=== PATIENT | male | born 2000 | race Caucasian/White ===

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

== ENCOUNTER 2020-07-25 00:35 | Emergency (ER) | payer BC ==
[~2020-07-25] VITALS: Ht 177.8 cm; Wt 93.6 kg
[2020-07-25 00:52] VITALS: TEMP 97.9
[2020-07-25 02:05] VITALS: BP 127/85; PULSE 83
== END 2020-07-25 02:05 | disposition home or self-care (01) ==
LOC: COL.ER 00:35
DX: S01.412A Laceration without foreign body of left cheek and temporomandibular area, initial encounter (principal); S00.12XA Contusion of left eyelid and periocular area, initial encounter; F10.10 Alcohol abuse, uncomplicated; W01.190A Fall on same level from slipping, tripping and stumbling with subsequent striking against furniture, initial encounter; Y92.838 Other recreation area as the place of occurrence of the external cause

== ENCOUNTER → 2020-07-30 | Outpatient (CLI) | payer BC ==
[2020-07-30 10:33] VITALS: BP 116/74; PULSE 82; TEMP 98.8
== END ==
LOC: COL.ER 10:23
DX: Z48.02 Encounter for removal of sutures (principal)